=== PATIENT | male | born 1995 | race Caucasian/White ===

== ENCOUNTER 2019-02-25 21:22 | Emergency (ER) | payer OTHER ==
[~2019-02-25] VITALS: Ht 175.3 cm; Wt 142.9 kg
[2019-02-25] MEDS ORDERED: CLINDAMYCIN PHOS 600 MG/ 4 ML VIAL IM ONE (23:00)
== END 2019-02-25 23:29 | disposition home or self-care (01) ==
LOC: FSED 21:22
DX: L03.317 Cellulitis of buttock (principal)
CPT/HCPCS: 99283